=== PATIENT | male | born 1965 | race Caucasian/White ===

== ENCOUNTER 2016-08-24 00:29 | Emergency (ER) | payer SELFPAY ==
[~2016-08-24] VITALS: Ht 167.6 cm; Wt 68.2 kg
[2016-08-24 00:30] VITALS: Ht 167.6 cm; Wt 68.2 kg
--- NOTE | 2016-08-24 00:54 | ERD ---
ER Documentation Chief Complaint Date/Time DATE: 08/24/16 TIME: 00:52 Chief Complaint HPI 51-year-old wheelchair dependent homeless male who presents emergency room with alcohol intoxication. The patient is a regular to the EMS rig that brought him in. The patient was at a local and intoxicated and was brought to the emergency room. No report of fall or trauma. The patient is uncooperative and refuses to have a conversation but is arousable. Remainder of HPI is limited. ROS Patient refuses to have a conversation FmHx Patient refuses Physical Exam Physical Exam General: Disheveled, no significant distress Head: Normocephalic, atraumatic. Eyes: Pupils equally reactive, EOM intact ENT: Moist mucous membranes Neck: Supple, no lymphadenopathy Respiratory: Lungs clear bilaterally, no distress Cardiovascular: RRR, no murmurs, rubs, or gallops Abdominal: Soft, non-tender, non-distended, no peritoneal signs : Deferred MSK: No edema, no unilateral swelling, 5/5 strength to upper extremities, wheelchair dependent Neurologic: Uncooperative but appears to be moving upper extremities Skin: No rash, no evidence of trauma Psych: Normal mood Procedures/MDM EKG, MONITORS, & DIAGNOSTIC IMAGING: CT brain: No acute process LAB INTERPRETATION: Patient refused MEDICAL DECISION MAKING: The patient's presentation is consistent with acute alcohol intoxication I have a much lower clinical concern for clinically significant traumatic brain injury, meningitis, significant electrolyte disturbance The patient's workup will include appropriate laboratory testing and diagnostic imaging, as well as observation for sobriety. The patient's presentation is most consistent with acute alcohol intoxication leading to acute encephalopathy. The patient is protecting their airway. The patient has no signs or symptoms concerning for impending respiratory failure and does not require intubation at this time. The patient will require observation in the emergency room to allow for metabolization. Once the patient is able to , navigate the community the patient can be safely discharged from the emergency room. ER COURSE: The patient remains well-appearing, he refuses laboratory testing. The patient is conversive but occasionally malingering. The patient states that he is hungry he was given food. The patient has no indication for further observation in the emergency department. The patient is safe for discharge home. Strong suspicion of malingering for this patient. I kept the patient and/or family informed of laboratory and diagnostic imaging results throughout the emergency room course. DISPOSITION PLAN: We discussed follow up with the patient's primary care doctor within 24 to 48 hours as needed. We also discussed return to the emergency room for worsening symptoms or worsening condition. Discharge Medications: [] Departure Diagnosis: Primary Impression: Alcoholic intoxication Complication of substance-induced condition: uncomplicated Qualified Code: F10.120 - Alcoholic intoxication, uncomplicated Additional Impression: Malingering Condition: Stable CARSON ROMERO MD Aug 24, 2016 00:54
--- NOTE | 2016-08-24 01:30 | RADRPT ---
PROCEDURE: CT head, without contrast. CLINICAL INDICATION: Patient in need of medical clearance. TECHNIQUE: Noncontrast CT examination of the head, with axial, sagittal and coronal reformatted im ages. Automated dose exposure control was employed. CTDI: 44.11 mGy and DLP: 720.23 mGy-cm. COMPARISON: None. FINDINGS: Note acute hemorrhage. Subarachnoid spaces are substantially preserved and symmetric. Ventricles are unremarkable. No mass effect. Guzman-white matter distinction is preserved without evident decreased attenuation t o suggest acute or recent infarct. Sinuses and osseous structures are unremarkable. IMPRESSION: No acute process in the head. RPTAT: [facility] Physician Julisa Date Time Electronically viewed and signed by Physician Julisa on 08/24/2016 01:30 RS/
[2016-08-24 04:36] VITALS: BP 136/81; PULSE 119; RESP 14; TEMP 98.1
== END 2016-08-24 04:50 | disposition left against medical advice (07) ==
LOC: E/R 00:29
DX: F10.120 Alcohol abuse with intoxication, uncomplicated (principal); Z76.5 Malingerer [conscious simulation]
CPT/HCPCS: 70450